=== PATIENT | female | born 1990 ===

== ENCOUNTER 2016-06-02 23:47 | Emergency (ER) | payer OTHER ==
[2016-06-03 00:17] VITALS: BMI 30.4
[2016-06-03 01:10] LABS: RBC URINE 1 /hpf (0-3); URINE BACTERIA FEW (<OCC); URINE BILIRUBIN NEGATIVE (NEGATIVE); URINE BLOOD NEGATIVE (NEGATIVE); URINE CALCIUM OXALATE CRYSTALS RARE /hpf (<OCC); URINE COLOR Yellow (YELLOW); URINE GLUCOSE (UA) NORMAL (Normal); URINE KETONE TRACE mg/dL (NEGATIVE); URINE LEUKOCYTE ESTERASE 2+ Leu/uL (Negative); URINE PROTEIN NEGATIVE (NEGATIVE); URINE UROBILINOGEN NORMAL mg/dL (0.2-1.0); WBC URINE 20 /hpf (0-5)
--- NOTE | 2016-06-03 01:19 | OBHP ---
Datetime: 06/03/2016 00:36 IP Adm Impression: , intrauterine ; No Active Labor IP Chief Complaint Other: left flank pain Admit Comment, IP Provider: chief complaint- left flank pain HPI 26 y/o at 22.5 wga with c/o llq and left flank pain since 6 p m.denies vaginal bleeding o r leaking of fluid.Reports active movement.denies any recent intercourse or lifting any heavy o bject.Rates pain as 3-4/10.Patient denies fever, chills course uncomplicated PMH denies PSH denies OBGYN HX ; [id number] Social hx denie stobacco, alcohol or illcit drug use Exam see exam section A/P 26 y/o at 22.5 wga with c/o left sided flank pain and left lower qusadrant pain.No act meka labor.patient denies any fever or chills -check ua -monitor closely 1.17 am UA with 2+le, wbc, rbc, few bacteria A/P patient with left sided abdominal pain and flank pain.C/o headache now.BP normal.Suspect uti -tylenol 650mg pox 1 given after which headache resolved -script for macrobid given -follow up in clinic next week Pelvic Type - PN: Adequate Extremities - PN: Normal Abdomen - PN: Normal Back - PN: Normal Lungs - PN: Normal Heart - PN: Normal Neurologic - PN: Normal General - PN: Normal FHR - Baseline A Provider: 150s Contraction Comments Provider: none Comments, ACOG Physical Exam: abdomen soft; no rebound or guarding; no cva tenderness Pelvic vulva and vagina with no lesions cervix closed, thick and high Uterus gravid adnexa no adnexal tenderness Gestation - Est Wks by US: 22.5 IP Hx Assessment: The History has been Reviewed and is Current Vital Signs Provider: Reviewed; Within Normal Limits NICHD Variability Prov Fetus A: Moderate 6-25bpm NICHD Decel Fetus A IP Provider: None Dilatation, Provider: 0 Effacement, Provider: thick Station, Provider: high Genitourinary Exam: Normal DTRs - PN: Normal
--- NOTE | 2016-06-03 01:21 | OBDCSUM ---
Datetime: 06/03/2016 01:19 Follow up at, Provider: clinic Disch Instr Activity: Normal activity Disch Instr Diet: Regular Discharge Time: 06/03/2016 01:19 Disch Referrals: None Datetime: 06/03/2016 01:18 Discharged to, Provider: Home Follow up at, Provider: [facility] Disch Instr Diet: Regular Discharge Instructions, Provider: Routine instructions given Discharge Time: 06/03/2016 01:18 Follow up in weeks, Provider: 1 WEEK Discharge Comment, Provider: TAKE MEDS PRESCRIBED GO TO THE ER IF YOU HAVE SEVERE PAIN, HEAVY BLEEDING, FEVER, CHILLS, CHEST PAIN SHORTNES [facility] [place] [facility] Discharge Diagnosis Prov Other: UTI
== END 2016-06-03 01:19 | disposition home or self-care (01) ==
LOC: C.EROB 23:47 → C.ER 23:47 → C.EROB 06-03 01:19
DX: O26.892 Other specified pregnancy related conditions, second trimester (principal); R10.9 Unspecified abdominal pain; R51 Headache; Z3A.22 22 weeks gestation of pregnancy

== ENCOUNTER 2016-07-20 22:15 | Emergency (ER) | payer OTHER ==
[2016-07-20 22:16] VITALS: BMI 30.4
[2016-07-20 22:28] VITALS: BP 101/68; PULSE 84; RESP 20; TEMP 97.8; O2SAT 100
[2016-07-20] MEDS ORDERED: Bacitracin 500 Units/gm Oint Foilpak UD TOP ONE (22:47)
--- NOTE | 2016-07-20 22:49 | C.PDOC ---
History Of Present Illness Patient complains of itching, redness, swelling and pain after insect bite near right jaw 2 days ago. She states she felt fever last night. Patient is . Time Seen by Provider: 07/20/16 22:39 Chief Complaint (Nursing): Abnormal Skin Integrity History Per: Patient History/Exam Limitations: no limitations Onset/Duration Of Symptoms: Days (2) Current Symptoms Are (Timing): Still Present Location Of Injury: Right: Face (insect bite) Past Medical History Reviewed: Historical Data, Nursing Documentation, Vital Signs Vital Signs: Last Vital Signs Temp 97.8 F 07/20/16 22:24 Pulse 84 07/20/16 22:24 Resp 20 07/20/16 22:24 BP 101/68 07/20/16 22:24 Pulse Ox 100 07/20/16 22:50 - Medical History PMH: No Chronic Diseases - [facility] Procedures APPLICATION OF SPLINT (04/19/14) Family History: States: Unknown Family Hx - Social History Hx Tobacco Use: No Hx Alcohol Use: No Hx Substance Use: No - Immunization History Hx Tetanus Toxoid Vaccination: No Hx Influenza Vaccination: No Hx Pneumococcal Vaccination: No Review Of Systems Constitutional: Positive for: Fever Eyes: Negative for: Pain, Vision Change ENT: Negative for: Ear Pain, Throat Pain Cardiovascular: Negative for: Chest Pain Respiratory: Negative for: Cough Gastrointestinal: Negative for: Abdominal Pain Skin: Positive for: Other (insect bite) Neurological: Negative for: Headache, Dizziness Physical Exam - Physical Exam Appears: Non-toxic, No Acute Distress Skin: Warm, Dry, Other (tender erythematous papule with mild surrounding swelling to right lower face, no vesicle, no discharge) Head: Atraumatic, Normacephalic Eye(s): bilateral: Normal Inspection, EOMI Ear(s): Bilateral: Normal Nose: Normal Oral Mucosa: Moist Throat: Normal, No Erythema, No Exudate Neck: Normal ROM Chest: Symmetrical Cardiovascular: Rhythm Regular Respiratory: Normal Breath Sounds, No Wheezing Gastrointestinal/Abdominal: Soft (gravid) Neurological/Psych: Oriented x3, Normal Speech ED Course And Treatment O2 Sat by Pulse Oximetry: 100 Medical Decision Making Medical Decision Making: patient with insect bite to right lower side of face, mild swelling and tenderness, no abscess. Bacitracin applied. Advise to avoid scratching area and will prescribe ointment. Disposition Counseled Patient/Family Regarding: Need For Followup, Rx Given - Disposition Disposition: HOME/ ROUTINE Disposition Time: 22:49 Condition: STABLE Additional Instructions: Aplicar ungento dos veces al da Puede kevin benadryl para cualquier picazn Prescriptions: Mupirocin 2% Ointment [Bactroban Ointment] 1 appl TP BID #1 tube Instructions: Insect Bite or Sting (ED) Print Language: BULGARIAN - POStalin Present On Arrival: None - Clinical Impression Clinical Impression: Insect bite - wound
[2016-07-20] MEDS ORDERED: Bacitracin 500 Units/gm Oint Foilpak UD ONE (22:51)
== END 2016-07-20 23:01 | disposition home or self-care (01) ==
LOC: C.ER 22:15
DX: S00.86XA Insect bite (nonvenomous) of other part of head, initial encounter (principal); W57.XXXA Bitten or stung by nonvenomous insect and other nonvenomous arthropods, initial encounter

== ENCOUNTER 2016-10-01 06:31 | Inpatient (IN) | payer MEDICAID, SELFPAY ==
[2016-10-01 06:57] VITALS: BMI 32.7
[2016-10-01] MEDS ORDERED: Lactated Ringer's 1,000 ML IV SCH ×2 (07:00)
--- NOTE | 2016-10-01 07:15 | OBADHP ---
Datetime: 10/01/2016 07:00 Admit Comment, IP Provider: 26 y.o. LMP unknown ESSENCE 10/02/16, EGA 39w 6d c/o contractions, on set 0400 hours, every 30 minutes, pain scale 4/10; passe mucous plug at that time. (+) AFM; bryant LO F, VB. care: [facility] - noted for (+) chlamydia; and UTI. P Ob: 04/2008, , female 7lb, no complications, [facility]ENT: 12 x monthly x 4. Chlamydia as above. No other STIs PMH: denies PSH: denies NKDA Meds: PNV - QD Soc Hx: denies tobacco, illicit drug or EtOH use. With Fob x 4 years; lives with him and her fidel mancera. Fam Hx: Mother - age and cause unknown. Father alive 50 y.o. - HTN. No knonwn h/o cancer P.E.: as above. WD in NAD. Awake, alert, oriented to time, person and place. Pleasant and cooperat meka. FOB present Assessment: 26 y.o. P1, 39w 6d, active labor. GBS (-). Category 1 tracing. Clinically stable. Plan: 1) Admit 2) NPO 3) IVFs 4) Continuous EFM 5) Admission labs 6) Possible pitocin 7) Epidural, upon request 8) Anticipate vaginal delivery - Case endorsed to Dr. Joy Pelvic Type - PN: Adequate Extremities - PN: Normal Abdomen - PN: Normal Back - PN: Normal Breast - PN: Not Done Lungs - PN: Normal Heart - PN: Normal Thyroid - PN: Not Done Neurologic - PN: Normal HEENT - PN: Normal General - PN: Normal Presentation-Admit: Vertex FHR - Baseline A Provider: 135 Contraction Comments Provider: 8 minutes Comments, ACOG Physical Exam: Abdomen: Gravid. Soft. Fundal height 40 cm All other systems reviewed and are negative Gestation - Est Wks by US: 39w 6d IP Hx Assessment: The History has been Reviewed and is Current IP Chief Complaint: Uterine contractions NICHD Variability Prov Fetus A: Moderate 6-25bpm NICHD Accel Fetus A IP Provider: 15X15 FHR Category Provider Fetus A: Category I NICHD Decel Fetus A IP Provider: None Dilatation, Provider: 4 Effacement, Provider: 80 Station, Provider: -2 Genitourinary Exam: Normal DTRs - PN: Not Done EGA AdmitDate IP: 39.6 IP Adm Impression: Term, intrauterine ; Active labor IP Admit Plan: Admit to unit; Initiate Section protocol Datetime: 06/03/2016 00:36 IP Chief Complaint Other: left flank pain Vital Signs Provider: Reviewed; Within Normal Limits
[2016-10-01 07:27] LABS: BASO # 0.1 K/uL (0.0-0.2); BASO % 0.3 % (0.0-2.0); EOS # 0.1 K/uL (0.0-0.7); EOS % 0.9 % (0.0-4.0); HEMOGLOBIN 11.9 g/dL (11.0-16.0); LYMPH % 19.1 % (20.0-40.0); MEAN CELL VOLUME 84.4 fL (81.0-99.0); MEAN CORPUSCULAR HEMOGLOBIN 27.7 pg (27.0-31.0); MEAN CORPUSCULAR HGB CONC 32.8 g/dL (33.0-37.0); MEAN PLATELET VOLUME 10.1 fL (7.2-11.7); MONO # 0.6 K/uL (0.0-0.8); MONO % 3.9 % (0.0-10.0); NEUT # 11.9 K/uL (1.8-7.0); NEUT % 75.8 % (50.0-75.0); RBC 4.3 Mil/uL (3.80-5.20); RED CELL DISTRIBUTION WIDTH 13.3 % (11.5-14.5); WHITE BLOOD COUNT 15.7 K/uL (4.8-10.8)
[2016-10-01 07:42] LABS: ALB/GLOB RATIO 1.2 (1.0-2.1); ALBUMIN 3.4 g/dL (3.5-5.0); ALT/SGPT 34 U/L (9-52); AST/SGOT 18 U/L (14-36); BLOOD UREA NITROGEN 9 mg/dL (7-17); CALCIUM 8.9 mg/dl (8.6-10.4); GFR AFRICAN-AMERICAN > 60; GFR NON-AFRICAN AMERICAN > 60
[2016-10-01 07:52] LABS: SQUAMOUS EPITHIAL 3 /hpf (0-5); URINE BILIRUBIN NEGATIVE (NEGATIVE); URINE BLOOD NEGATIVE (NEGATIVE); URINE CLARITY Clear (Clear); URINE COLOR Yellow (YELLOW); URINE GLUCOSE (UA) NORMAL (Normal); URINE LEUKOCYTE ESTERASE NEG Leu/uL (Negative); URINE NITRATE NEGATIVE (NEGATIVE); URINE PROTEIN NEGATIVE (NEGATIVE); URINE UROBILINOGEN NORMAL mg/dL (0.2-1.0)
[2016-10-01] MEDS ORDERED: Oxytocin 30 UNIT 30 UNITS/500 ML BAG IV PRN (08:12)
--- NOTE | 2016-10-01 08:13 | OBPN ---
Datetime: 10/01/2016 08:10 IP Progress Impression: Normal progression of labor IP Procedures: Sterile Vag Exam FHR - Baseline A Provider: 130 IP Progress Note Comment: pt was examined at bed side ve 4/80/-2 start ptocin anticipate Vital Signs Provider: Reviewed; Within Normal Limits NICHD Accel Fetus A IP Provider: 15X15 NICHD Variability Prov Fetus A: Moderate 6-25bpm Dilatation, Provider: 4 Effacement, Provider: 80 Station, Provider: -2 Datetime: 10/01/2016 07:00 Contraction Comments Provider: 8 minutes Gestation - Est Wks by US: 39w 6d Presentation-Admit: Vertex FHR Category Provider Fetus A: Category I NICHD Decel Fetus A IP Provider: None
[2016-10-01] MEDS ORDERED: Bupivacaine HCl 0.25% PF (10 ml) Inj ONE (08:14)
[2016-10-01] MEDS ORDERED: Bupivacaine 0.125%/FentaNYL 200 ML EPI ONE (09:17)
--- NOTE | 2016-10-01 14:00 | OBDS ---
MATERNAL INFORMATION Provider Comments: baby deliverd in [place] with compound presentation. left arm deliverd . peads presem t. 9/9 end clean no com LABOR SUMMARY EDC: 10/02/2016 00:00 No. Babies in Womb: 1 LABOR INFORMATION Group B Beta Strep: Negative (Annotations: 09/14/2016) MEMBRANES Membranes Rupture Method: Artificial Rupture of Membranes: 10/01/2016 10:10 Amniotic Fluid Color: Clear Amniotic Fluid Amount: Moderate Amniotic Fluid Odor: Normal BABY A INFORMATION Forceps: N/A Vacuum Extraction: N/A Shoulder Dystocia : No PRESENTATION/POSITION BABY A Presentation: Cephalic Cephalic Presentation: Vertex Vertex Position: Left Occipital Anterior Breech Presentation: N/A CORD INFORMATION BABY A Nuchal Cord : Around Neck x1, Tight
[2016-10-01] MEDS ORDERED: Benzocaine/Menthol 20%-0.5% Topical Spray (60 ml) TOP PRN (14:01)
[2016-10-01] MEDS ORDERED: Oxycodone/Acetaminophen 5/325 mg Tab PO PRN (14:01)
[2016-10-01] MEDS ORDERED: Oxytocin 30 UNIT 30 UNITS/500 ML BAG IV SCH (14:15)
[2016-10-02 07:01] LABS: HEMOGLOBIN 10.3 g/dL (11.0-16.0); MEAN CELL VOLUME 84.4 fL (81.0-99.0); MEAN CORPUSCULAR HEMOGLOBIN 27.7 pg (27.0-31.0); MEAN CORPUSCULAR HGB CONC 32.8 g/dL (33.0-37.0); MEAN PLATELET VOLUME 10.2 fL (7.2-11.7); RBC 3.72 Mil/uL (3.80-5.20); RED CELL DISTRIBUTION WIDTH 13.3 % (11.5-14.5); WHITE BLOOD COUNT 17.9 K/uL (4.8-10.8)
--- NOTE | 2016-10-02 09:11 | OBPPN ---
Datetime: 10/02/2016 09:07 PP Pain Prov: Within normal limits PP Nausea Prov: Denies PP Flatus Prov: Yes PP Breasts Prov: Normal PP Heart Prov: Normal PP Lungs Prov: Normal PP Abdomen/Uterus Prov: Normal PP Lochia Prov: Normal PP Vulva/Perineum Prov: Normal PP CVA Tenderness Prov: Normal PP Extremities Prov: Normal PP C/S Incision Prov: Not Applicable PP Progress Prov: Normal PP Comments Phys Exam Prov: Abd: Soft, NT, BS- present. UT- Firm PP Impression Prov: Normal progression PP Plan Prov: Continue present management PP Progress Note Prov: S/P , PPD #1 Clinically Stable. PLan: Continue care. Vital Signs Provider PP: Reviewed
[2016-10-03 07:02] VITALS: TEMP 97.8
--- NOTE | 2016-10-03 07:39 | OBPPN ---
Datetime: 10/03/2016 07:36 PP Pain Prov: Within normal limits PP Nausea Prov: Denies PP Flatus Prov: Yes PP BM Prov: Yes PP Heart Prov: Normal PP Lungs Prov: Normal PP Abdomen/Uterus Prov: Normal PP Lochia Prov: Normal PP CVA Tenderness Prov: Normal PP Extremities Prov: Normal PP C/S Incision Prov: Not Applicable PP Progress Prov: Normal PP Impression Prov: Normal progression PP Plan Prov: Discharge PP Progress Note Prov: S-patient denies any complaints.reports that pain is well controlled.denies n ausea, vomting, headache, chest pain, shortness of breath O-VSS Afebrile Fundus firm and below umbilicus extremities no calf tenderness A/P Patient s/p vaginal delivery PPD 2 doing well -discharge today -follow up in clinic in 6 weeks Vital Signs Provider PP: Reviewed; Within Normal Limits
--- NOTE | 2016-10-03 07:41 | OBDCSUM ---
Datetime: 10/03/2016 07:38 Discharged to, Provider: Home Follow up at, Provider: clinic Disch Instr Activity: Normal activity Disch Instr Diet: Regular Discharge Instructions, Provider: Routine instructions given Discharge Diagnosis, Provider: Term Delivered Discharge Time: 10/03/2016 07:38 Follow up in weeks, Provider: 6 weeks Disch Activity Restrictions: No exercising; No lifting; No driving; No sexual activity; Nothing in v agina - [place], tampons, douche Discharge Comment, Provider: go to er if you have fever, severe pain, heavy bleeding or any other pr oblems
[2016-10-03 15:56] VITALS: BP 99/62; PULSE 65; RESP 18; O2SAT 99
== END 2016-10-03 10:30 | disposition home or self-care (01) | DRG 373 ==
LOC: C.EROB 06:31 → C.4D 06:56 → C.4M 16:05
PROVIDERS: ADMIT Obstetrics & Gynecology; ATTEND Obstetrics & Gynecology
PROC: 10E0XZZ Delivery of Products of Conception, External Approach (ICD-10-PCS; principal; 2016-10-01)
PROC: 10907ZC Drainage of Amniotic Fluid, Therapeutic from Products of Conception, Via Natural or Artificial Opening (ICD-10-PCS; 2016-10-01)
DX: O32.6XX0 Maternal care for compound presentation, not applicable or unspecified (principal); O69.1XX0 Labor and delivery complicated by cord around neck, with compression, not applicable or unspecified; Z3A.39 39 weeks gestation of pregnancy; Z87.440 Personal history of urinary (tract) infections; Z37.0 Single live birth

== ENCOUNTER 2018-01-21 17:36 | Emergency (ER) | payer MEDICAID ==
[2018-01-21 17:45] VITALS: BP 103/68; PULSE 94; RESP 18; TEMP 98; O2SAT 100
--- NOTE | 2018-01-21 18:27 | C.PDOC ---
History Of Present Illness 27 year old female, who is 27 weeks pregnany, presents to the emergency department with complaints of "allergy" including itchy nose, eyes, and throat for the last two days. Patient states that she took Claritin and Benadryl at home with no significant relief of symptoms. She denies fever, chills, shortness of breath, chest pain, leg swelling, headache, n/v, abdomen pain, vaginal bleeding, and palpitations. Time Seen by Provider: 01/21/18 18:09 Chief Complaint (Nursing): ENT Problem History Per: Patient, Horse Wrangler (Pavel Lea) History/Exam Limitations: no limitations Onset/Duration Of Symptoms: Days (2) Current Symptoms Are (Timing): Still Present Possible Cause: Unknown Associated Symptoms: Itching Home/EMS Treatment: Benadryl, Other (Claritin) Past Medical History Reviewed: Historical Data, Nursing Documentation, Vital Signs Vital Signs: Last Vital Signs Temp 98.0 F 01/21/18 17:42 Pulse 94 H 01/21/18 17:42 Resp 18 01/21/18 17:42 BP 103/68 01/21/18 17:42 Pulse Ox 100 01/21/18 17:42 - Medical History PMH: No Chronic Diseases Denies: Depression, Diabetes, HTN Surgical History: No Surg Hx - [facility] Procedures APPLICATION OF SPLINT (04/19/14) DELIVERY OF PRODUCTS OF CONCEPTION, EXTERNAL APPROACH (10/01/16) DRAINAGE OF AMNIOTIC FL, THERAP FROM POC, VIA OPENING (10/01/16) Family History: States: No Known Family Hx - Social History Hx Tobacco Use: No Hx Alcohol Use: No Hx Substance Use: No - Immunization History Hx Tetanus Toxoid Vaccination: No Hx Influenza Vaccination: No Hx Pneumococcal Vaccination: No Review Of Systems Except As Marked, All Systems Reviewed And Found Negative. Constitutional: Negative for: Fever, Chills Eyes: Positive for: Other (itchy eyes) ENT: Positive for: Other (itchy throat, itchy nose) Cardiovascular: Negative for: Chest Pain, Palpitations Respiratory: Negative for: Shortness of Breath Physical Exam - Physical Exam Appears: Well, Non-toxic, No Acute Distress Skin: Normal Color, Warm, Dry Head: Atraumatic, Normacephalic Eye(s): bilateral: PERRL, EOMI, Other (tearing) Ear(s): Bilateral: Normal Nose: Other (nasal congestion) Oral Mucosa: Moist Throat: Normal, No Erythema, No Exudate, No Drooling Neck: Normal ROM, Supple Chest: Symmetrical Cardiovascular: Rhythm Regular Respiratory: Normal Breath Sounds, No Accessory Muscle Use, Other (speaking full sentences) Gastrointestinal/Abdominal: No Tenderness, Other (gravid appropriate to dates) Neurological/Psych: Oriented x3 ED Course And Treatment O2 Sat by Pulse Oximetry: 100 (RA) Pulse Ox Interpretation: Normal Progress Note: Instructed to follow up with OB in 1-2 days. Discussed return precautions. Disposition - Disposition Disposition: HOME/ ROUTINE Disposition Time: 17:40 Condition: STABLE Additional Instructions: Vaya a domingo mdico o la clnica en 2-5 harris sin falta, para mas evaluacin. [place] los medicamentos michelle indicado. Volver a la oswald de emergencia en cualquier momento si los sntomas persisten o empeoran. Prescriptions: Cetirizine HCl [Zyrtec] 10 mg PO DAILY #10 capsule Instructions: Seasonal Allergies (DC) Forms: [employer] (Yoruba) Print Language: INDONESIAN - Clinical Impression Clinical Impression: Seasonal allergies - PA / CLINICAL RESEARCH TECHNICIAN / Resident Statement MD/DO has reviewed & agrees with the documentation as recorded. - Scribe Statement The provider has reviewed the documentation as recorded by the Scribe (Faisal Mccloud) All medical record entries made by the Scribe were at my direction and personally dictated by me. I have reviewed the chart and agree that the record accurately reflects my personal performance of the history, physical exam, medical decision making, and the department course for this patient. I have also personally directed, reviewed, and agree with the discharge instructions and disposition.
--- NOTE | 2018-01-21 18:29 | C.PDOC ---
Time Seen by Provider: 01/21/18 18:09 Chief Complaint (Nursing): ENT Problem Past Medical History Vital Signs: Last Vital Signs Temp 98.0 F 01/21/18 17:42 Pulse 94 H 01/21/18 17:42 Resp 18 01/21/18 17:42 BP 103/68 01/21/18 17:42 Pulse Ox 100 01/21/18 17:42 - Medical History PMH: Denies: Depression, Diabetes, HTN - [facility] Procedures APPLICATION OF SPLINT (04/19/14) DELIVERY OF PRODUCTS OF CONCEPTION, EXTERNAL APPROACH (10/01/16) DRAINAGE OF AMNIOTIC FL, THERAP FROM POC, VIA OPENING (10/01/16) Family History: States: Unknown Family Hx - Social History Hx Tobacco Use: No Hx Alcohol Use: No Hx Substance Use: No - Immunization History Hx Tetanus Toxoid Vaccination: No Hx Influenza Vaccination: No Hx Pneumococcal Vaccination: No ED Course And Treatment O2 Sat by Pulse Oximetry: 100 Disposition - Disposition Disposition: HOME/ ROUTINE Disposition Time: 18:26 Condition: STABLE Additional Instructions: Vaya a domingo mdico o la clnica en 2-5 harris sin falta, para mas evaluacin. [place] os medicamentos michelle indicado. Volver a la oswald de emergencia en cualquier momento si los sntomas persisten o empeoran. Prescriptions: Cetirizine HCl [Zyrtec] 10 mg PO DAILY #10 capsule Instructions: Seasonal Allergies (DC) Forms: [employer] (Danish) Print Language: KISWAHILI
== END 2018-01-21 18:32 | disposition home or self-care (01) ==
LOC: C.ER 17:36
DX: J30.2 Other seasonal allergic rhinitis (principal)

== ENCOUNTER 2018-04-18 03:59 | Emergency (ER) | payer MEDICAID ==
--- NOTE | 2018-04-18 05:22 | OBHP ---
Datetime: 04/18/2018 05:16 IP Adm Impression: Term, intrauterine ; No Active Labor; Intact Membranes IP Admit Plan: Discharge home Admit Comment, IP Provider: A/P: 28 yo at 40 wks r/o labor - multigravida - pt came in stating its her due date - + ctxs, -LOF, -VB, +FM - early labor, precautions given, return to hospital when ctxs q 5 min, d/w pt through language li ne, pt understands - d/c home FHR - Baseline A Provider: 130-140 Membranes, Provider: Intact Contraction Comments Provider: q10 Pool Provider: Negative EGA AdmitDate IP: 40.0 Vital Signs Provider: Reviewed; Within Normal Limits IP Chief Complaint: Uterine contractions; Maternal discomfort NICHD Variability Prov Fetus A: Moderate 6-25bpm NICHD Accel Fetus A IP Provider: 15X15 FHR Category Provider Fetus A: Category I NICHD Decel Fetus A IP Provider: None Dilatation, Provider: 2 Effacement, Provider: 50 Station, Provider: -3
[2018-04-18 09:42] VITALS: BP 113/69; PULSE 80; RESP 20; TEMP 98
== END 2018-04-18 05:35 | disposition home or self-care (01) ==
LOC: C.EROB 03:59
DX: O47.1 False labor at or after 37 completed weeks of gestation (principal); Z3A.40 40 weeks gestation of pregnancy

== ENCOUNTER 2018-04-19 04:39 | Inpatient (IN) | payer MEDICAID ==
[2018-04-19 05:38] VITALS: BMI 32.0
[2018-04-19] MEDS ORDERED: Lactated Ringer's 1,000 ML IV SCH (05:45)
[2018-04-19 06:08] LABS: HEMOGLOBIN 12.7 g/dL (11.0-16.0); MEAN CELL VOLUME 86.9 fL (81.0-99.0); MEAN CORPUSCULAR HEMOGLOBIN 28.3 pg (27.0-31.0); MEAN CORPUSCULAR HGB CONC 32.5 g/dL (33.0-37.0); MEAN PLATELET VOLUME 10.8 fL (7.2-11.7); RBC 4.48 Mil/uL (3.80-5.20); RED CELL DISTRIBUTION WIDTH 13.3 % (11.5-14.5); WHITE BLOOD COUNT 15.9 K/uL (4.8-10.8)
[2018-04-19 06:16] LABS: SQUAMOUS EPITHIAL 6 /hpf (0-5); URINE BILIRUBIN NEGATIVE (NEGATIVE); URINE CLARITY Hazy (Clear); URINE COLOR Yellow (YELLOW); URINE GLUCOSE (UA) NORMAL (Normal); URINE LEUKOCYTE ESTERASE 1+ Leu/uL (Negative); URINE PROTEIN NEGATIVE (NEGATIVE); URINE UROBILINOGEN NORMAL mg/dL (0.2-1.0)
[2018-04-19 06:23] LABS: ALB/GLOB RATIO 1.2 (1.0-2.1); ALBUMIN 3.8 g/dL (3.5-5.0); ALT/SGPT 24 U/L (9-52); AST/SGOT 18 U/L (14-36); BLOOD UREA NITROGEN 11 mg/dL (7-17); CALCIUM 9.7 mg/dl (8.6-10.4); GFR NON-AFRICAN AMERICAN > 60
[2018-04-19 06:36] LABS: URINE BLOOD NEGATIVE (NEGATIVE)
[2018-04-19] MEDS ORDERED: Oxytocin 30 UNIT 30 UNITS/500 ML BAG IV ONE ×2 (07:45→08:37)
[2018-04-19] MEDS ORDERED: Bupivacaine HCl/FentaNYL Cit 100 ML EPI ONE (07:52)
--- NOTE | 2018-04-19 09:50 | OBHP ---
Datetime: 04/19/2018 08:22 IP Adm Impression: Term, intrauterine ; No Active Labor; Intact Membranes IP Admit Plan: Admit to unit; Initiate labor augmentation protocol Admit Comment, IP Provider: Subjective: Patient is a 28 year old female at 40 weeks 1 day gestation presenting with early onset of labor. Patient states that she began feeling intermittent lower abdominal cramping at 4am. At the ti me she noticed an isolated episode of slight vaginal bleeding, with no gush of fluid. Patient endorse s continuous movement. Patient denies headaches, blurry vision, chest pain, shortness of breath , nausea, vomiting, diarrhea, constipation, dysuria, increased frequency. OBGYN Hx: ; prior pregnancies vaginal delivery at 40 weeks. Second required augme ntation. Chl2016 and 10/2017 patient and partner treated. Soc Hx: Denies tobacco, alcohol, illicit drug use. Medical Hx: Denies Allergies: Environmental only Surgical Hx: Denies Hospitilizations: For 2 prior pregnancies. Family Hx: DM, HTN Medications: PNV Objective: VS - vital signs reviewed PE- please see physical exam comments. Assessment and Plan: 1. 28 year old female 40 weeks 1 day 2. Early labor 3. Post dates 4. Multigravida 5. GBS - Will admit to hospital Anticipate vaginal delivery Initiate augmentation of labor with pitocin. Pain control with epidural. CBC, CMP, type and screen UA collected IV Fluids; LR 1L, LR @ 125 maintenance Rosa catheter placed. CEFM and TOCO No indication for antibiotics at this time Patient seen and case discussed with Dr. Sanjay Ratliff DO PGY-1 Sharmila EVERETT Pt seen and examined with Dr. Ratliff and Med Student Mr. Davis and agreed with all of their finding s and POC. Pelvic Type - PN: Adequate Extremities - PN: Normal Abdomen - PN: Normal Back - PN: Normal Breast - PN: Not Done Lungs - PN: Normal Heart - PN: Normal Thyroid - PN: Not Done Neurologic - PN: Not Done HEENT - PN: Normal General - PN: Normal Presentation-Admit: Vertex FHR - Baseline A Provider: 135 Membranes, Provider: Intact Contraction Comments Provider: Irregular Comments, ACOG Physical Exam: General: non toxic, no acute distress HEENT: normocephalic atraumatic Cardio: Regular rate rhythm, + s1, +s2 Pulm: Clear to ausculation b/l, no accessory respiratory muscle use GI: nontender, non distended, soft : 3-4 cm dilated, 70% effaced, -3 station at [address] catheter in place. Extremities: +1 LE edema. Gestation - Est Wks by US: 40 wks 1 day Pool Provider: Negative IP Hx Assessment: The History has been Reviewed and is Current EGA AdmitDate IP: 40.1 Vital Signs Provider: Reviewed; Within Normal Limits IP Indication for Induction: Postterm IP Chief Complaint: Uterine contractions NICHD Variability Prov Fetus A: Moderate 6-25bpm NICHD Accel Fetus A IP Provider: 15X15 FHR Category Provider Fetus A: Category I NICHD Decel Fetus A IP Provider: None Dilatation, Provider: 3 Effacement, Provider: 70 Station, Provider: -3 Genitourinary Exam: Normal DTRs - PN: Not Done
--- NOTE | 2018-04-19 09:53 | OBADHP ---
Datetime: 04/19/2018 08:22 Admit Comment, IP Provider: Subjective: Patient is a 28 year old female at 40 weeks 1 day gestation presenting with early onset of labor. Patient states that she began feeling intermittent lower abdominal cramping at 4am. At the ti me she noticed an isolated episode of slight vaginal bleeding, with no gush of fluid. Patient endorse s continuous movement. Patient denies headaches, blurry vision, chest pain, shortness of breath , nausea, vomiting, diarrhea, constipation, dysuria, increased frequency. OBGYN Hx: ; prior pregnancies vaginal delivery at 40 weeks. Second required augme ntation. Chl2016 and 10/2017 patient and partner treated. Soc Hx: Denies tobacco, alcohol, illicit drug use. Medical Hx: Denies Allergies: Environmental only Surgical Hx: Denies Hospitilizations: For 2 prior pregnancies. Family Hx: DM, HTN Medications: PNV Objective: VS - vital signs reviewed PE- please see physical exam comments. Assessment and Plan: 1. 28 year old female 40 weeks 1 day 2. Early labor 3. Post dates 4. Multigravida 5. GBS - Will admit to hospital Anticipate vaginal delivery Initiate augmentation of labor with pitocin. Pain control with epidural. CBC, CMP, type and screen UA collected IV Fluids; LR 1L, LR @ 125 maintenance Rosa catheter placed. CEFM and TOCO No indication for antibiotics at this time Patient seen and case discussed with Dr. Sanjay Ratliff DO PGY-1 Sharmila EVERETT Pt seen and examined with Dr. Ratliff and Med Student Mr. Davis and agreed with all of their finding s and POC. Pelvic Type - PN: Adequate Extremities - PN: Normal Abdomen - PN: Normal Back - PN: Normal Breast - PN: Not Done Lungs - PN: Normal Heart - PN: Normal Thyroid - PN: Not Done Neurologic - PN: Not Done HEENT - PN: Normal General - PN: Normal Presentation-Admit: Vertex FHR - Baseline A Provider: 135 Membranes, Provider: Intact Contraction Comments Provider: Irregular Comments, ACOG Physical Exam: General: non toxic, no acute distress HEENT: normocephalic atraumatic Cardio: Regular rate rhythm, + s1, +s2 Pulm: Clear to ausculation b/l, no accessory respiratory muscle use GI: nontender, non distended, soft : 3-4 cm dilated, 70% effaced, -3 station at [address] catheter in place. Extremities: +1 LE edema. Gestation - Est Wks by US: 40 wks 1 day Pool Provider: Negative IP Hx Assessment: The History has been Reviewed and is Current Vital Signs Provider: Reviewed; Within Normal Limits IP Chief Complaint: Uterine contractions NICHD Variability Prov Fetus A: Moderate 6-25bpm NICHD Accel Fetus A IP Provider: 15X15 FHR Category Provider Fetus A: Category I NICHD Decel Fetus A IP Provider: None Dilatation, Provider: 3 Effacement, Provider: 70 Station, Provider: -3 Genitourinary Exam: Normal DTRs - PN: Not Done EGA AdmitDate IP: 40.1 IP Adm Impression: Term, intrauterine ; No Active Labor; Intact Membranes IP Admit Plan: Admit to unit; Initiate labor augmentation protocol
[2018-04-19] MEDS ORDERED: Lactated Ringer's 500 ML IV SCH (10:15)
--- NOTE | 2018-04-19 11:12 | OBPN ---
Datetime: 04/19/2018 10:53 IP Progress Impression: Normal progression of labor IP Procedures: Sterile Vag Exam IP Progress Plan: Continue present management; Augmentation; Anticipate Vaginal Delivery Membranes, Provider: Intact Contraction Comments Provider: 1-2 FHR - Baseline A Provider: 140 IP Progress Note Comment: Patient examined in room. Denies pain associated with contractions. Cervical Exam: as above Pitcocin at 10Munits 28 year old P2 at 40 wks 1day in active labor on pitocin Category I tracing Patient clinically stable Plan: As above Patient seen and examined with Dr. Oneil Ratliff, PGY-1 Attending Note: patient seen, evaluated and examined by me with the Resident. I agree with the abo ve. Vital Signs Provider: Reviewed; Within Normal Limits FHR Category Provider Fetus A: Category I NICHD Variability Prov Fetus A: Moderate 6-25bpm Dilatation, Provider: 6-7 Effacement, Provider: 80 Station, Provider: 0 NICHD Decel Fetus A IP Provider: Early Datetime: 04/19/2018 08:22 Pool Provider: Negative Gestation - Est Wks by US: 40 wks 1 day Presentation-Admit: Vertex NICHD Accel Fetus A IP Provider: [id number]
[2018-04-19] MEDS ORDERED: Oxytocin 20 units in LR 2,000 ML IV ONE (11:13)
[2018-04-19] MEDS ORDERED: Oxytocin 10 Units/ml Inj ONE (13:25)
[2018-04-19] MEDS ORDERED: Oxytocin 10 Units/ml Inj IV ONE (13:30)
[2018-04-19] MEDS ORDERED: Benzocaine/Menthol 20%-0.5% Topical Spray (60 ml) TOP PRN (13:54)
[2018-04-19] MEDS: Oxycodone/Acetaminophen 5/325 mg Tab PO PRN ×2 (14:28→20:10)
[2018-04-19] MEDS ORDERED: Oxycodone/Acetaminophen 5/325 mg Tab ONE (14:31)
--- NOTE | 2018-04-19 14:41 | OBDS ---
DELIVERY PERSONNEL Delivery Doctor: Stephen Riggs MD Corporate Driver: FREDY Rao Anesthesiologist: Dr Church Resident: Dr Ratliff MATERNAL INFORMATION Delivery Anesthesia: Epidural Medications in Delivery: pitocin and methergine Estimated Blood Loss (ml): 1000 Placenta Cultured: No Maternal Complications: None Provider Comments: , live male over intact perineum, EUGENE, loose nuchal cord x 2. Infant's mouth and nose bulb-suctioned on perineum. placed on mother's abdomen. Delayed cord clamping x 60 sec; then cord doubly clamped and cut. Spontaneous deliveyr of placents - grossly intact, 3 vesse cord Uterine exploraiton performed - moderate amount of clots expressed. Uterus mildly boggy. 20 units pitocin added to infusion of 20 Units in 1000 mL LR. Uterus firmed up. Cervix, vagina, perineum inspected - laceration as above. No cervical or vaginal laceration noted. Another gush of blood noted. Methergine 0.2 mg IM adminstered; uterus evacuated additional clots. Bi manual massage performed; uterus once again more firm. Repair of laceration - as above. Hemostasis assured. Patient remained awake, alert, oriented and responsive during entire encounter. BP wnl throughout. Patient tolerated procedure well; bonding with . EBL 1,000 mL Weight 6lb 4oz 's 9/9 LABOR SUMMARY EDC: 04/18/2018 00:00 No. Babies in Womb: 1 Attempted: No Labor Anesthesia: Epidural LABOR INFORMATION Onset of Labor: 04/19/2018 03:30 Complete Dilatation: 04/19/2018 13:07 Oxytocin: Augmentation Group B Beta Strep: Negative (Annotations: 03/27/2018) Steroids Given: None Reason Steroids Not Administered: Not Applicable MEMBRANES Membranes Rupture Method: Spontaneous Rupture of Membranes: 04/19/2018 13:11 Length of Rupture (hrs): 0.00 Amniotic Fluid Color: Clear Amniotic Fluid Amount: Moderate STAGES OF LABOR Stage 1 hrs: 9 Stage 1 min: 37 Stage 2 hrs: 0 Stage 2 min: 4 Stage 3 hrs: 0 Stage 3 min: 8 Total Time in Labor hrs: 9 Total Time in Labor min: 49 VAGINAL DELIVERY Episiotomy: None Laceration Extension: N/A Other Laceration: 1st degree right periurethral and left labial lacerations Laceration Repair Note: 3-0 chromic - running interocking - left labial Hemostasis assured Patient tolerated procedure well. Initial Vag Sponge Count: 10 Final Vag Sponge Count: 10 Initial Vag Sharps Count: 1 Final Vag Sharps Count: 1 Sponge Count Correct: Yes Sharps Count Correct: Yes Count Comment: Correct BABY A INFORMATION Infant Delivery Date/Time: 04/19/2018 13:11 Method of Delivery: Vaginal Born in Route : No : N/A Forceps: N/A Vacuum Extraction: N/A Shoulder Dystocia : No SHOULDER DYSTOCIA BABY A Infant Delivery Date/Time: 04/19/2018 13:11 PRESENTATION/POSITION BABY A Presentation: Cephalic Cephalic Presentation: Vertex Breech Presentation: N/A PLACENTA INFORMATION BABY A Placenta Delivery Time : 04/19/2018 13:19 Placenta Method of Delivery: Spontaneous Placenta Status: Delivered SCORES BABY A Heart Rate 1 min: >100 bpm Resp Effort 1 min: Good Cry Reflex Irritability 1 min: Cough or Sneeze or Pulls Away Muscle Tone 1 min: Active Motion Color 1 min: Body [place], Extremities Blue Resuscitation Effort 1 min: Tactile Stimulation SCORE 1 MIN: 9 Heart Rate 5 min: >100 bpm Resp Effort 5 min: Good Cry Reflex Irritability 5 min: Cough or Sneeze or Pulls Away Muscle Tone 5 min: Active Motion Color 5 min: Body [place], Extremities Blue Resuscitation Effort 5 min: Tactile Stimulation SCORE 5 MIN: 9 INFORMATION BABY A Gestational Age at Delivery: 40.1 Gestational Status: Post-term Infant Outcome : Liveborn Infant Condition : Stable Sex: Male IDENTIFICATION/MEDS BABY A ID Band Number: [id number] ID Band Location: Right Arm; Left Leg Sensor Applied: Yes Sensor Number: [id number] Sensor Location : Cord Clamp Vitamin K Given : Not Given Erythromycin Given: Not Given WEIGHT/LENGTH BABY A Infant Birthweight (gms): 2825 Weight (lb): 6 Infant Weight (oz): 4 Length Inches: 20.00 Length cms: 50.8 CORD INFORMATION BABY A No. Cord Vessels: 0 Nuchal Cord : Around Neck x2, Loose Cord Blood Taken: Yes Suction: Mouth; Nose ASSESSMENT BABY A Complications: None Physical Findings at Delivery: Within Normal Limits Respirations: Appears Normal Television Reporter/ALS Called : No Infant Care By: LESLEY Tran Transferred To: Remains with Mother
[2018-04-19] MEDS ORDERED: Nalbuphine HCL 10 mg/ml Ampule ONE (16:54)
[2018-04-19 18:43] LABS: BASO # 0.1 K/uL (0.0-0.2); BASO % 0.4 % (0.0-2.0); EOS # 0.1 K/uL (0.0-0.7); EOS % 0.3 % (0.0-4.0); LYMPH # 2.9 K/uL (1.0-4.3); LYMPH % 12.1 % (20.0-40.0); MEAN CELL VOLUME 86.3 fL (81.0-99.0); MEAN CORPUSCULAR HEMOGLOBIN 27.7 pg (27.0-31.0); MEAN CORPUSCULAR HGB CONC 32.1 g/dL (33.0-37.0); MEAN PLATELET VOLUME 10.3 fL (7.2-11.7); MONO % 4.3 % (0.0-10.0); NEUT % 82.9 % (50.0-75.0); NRBC % 0.1 % (0.0-2.0); RBC 4.35 Mil/uL (3.80-5.20); RED CELL DISTRIBUTION WIDTH 13.4 % (11.5-14.5)
[2018-04-19 18:48] LABS: WHITE BLOOD COUNT 24.2 K/uL (4.8-10.8)
--- NOTE | 2018-04-19 18:56 | CP.PCM.PN ---
Subjective - Date & Time of Evaluation Date of Evaluation: 04/19/18 Time of Evaluation: 18:50 - Subjective Subjective: Progress note. Rapid response called roughly 6:30 PM for "unresponsive patient" Pt just finished delivering third child by vaginal delivery. Apparently was not responding to questions or commands. Responded ultimately to sternal rub. Now resting comfortably. Significant amount of urine drained by shannon. VSS. Stat cbc, cmp ordered. O: VSS. Head: NC,AT. Neck: supple. Lungs: CTAB. Heart: S1,S2. RRR. Abdomen: Soft, non tender. Ext: no c/c/e. A/P Possibly vasovagal rxn secondary to epidural/urinary retention 1. stat cbc, cmp ordered -continue fluids -continue to monitor -vital signs stable. Objective - Medications Medications: Current Medications Benzocaine/Menthol (Dermoplast 20%-0.5%) 0 ml TOP Q6 PRN PRN Reason: Perineal Discomfort Last Admin: 04/19/18 17:57 Dose: 10 ml Lactated Ringer's (Lactated Ringer's) 1,000 mls @ 0 mls/hr IV .Q0M [facility] Oxytocin (Pitocin) 30 units in 500 mls @ 2 mls/hr IV .Q24H ONE; Protocol Stop: 04/20/18 07:44 Last Admin: 04/19/18 08:45 Dose: 2 mls/hr Lactated Ringer's (Lactated Ringer's) 500 mls @ 999 mls/hr IV .Q31M [facility] Oxytocin (Pitocin 20 Units In Lr) 1,000 mls @ 125 mls/hr IV .Q8H ONE Stop: 04/19/18 21:45 Ibuprofen (Motrin Tab) 600 mg PO Q6 PRN PRN Reason: Pain, Mild (1-3) Last Admin: 04/19/18 13:58 Dose: 600 mg Multivitamins (Hexavitamin) 1 tab PO DAILY [facility] Oxycodone/Acetaminophen (Percocet 5/325 Mg Tab) 1 tab PO Q4H PRN PRN Reason: Pain, moderate (4-7) Stop: 04/22/18 13:47 Last Admin: 04/19/18 14:28 Dose: 1 tab Sennosides (Senokot Tab) 17.2 mg PO DAILY [facility] - Labs Labs: 04/19/18 18:40 04/19/18 06:04
[2018-04-19 19:02] LABS: ALB/GLOB RATIO 1.2 (1.0-2.1); ALBUMIN 3.2 g/dL (3.5-5.0); ALT/SGPT 19 U/L (9-52); AST/SGOT 20 U/L (14-36); BLOOD UREA NITROGEN 7 mg/dL (7-17); CALCIUM 9.1 mg/dl (8.6-10.4); GFR NON-AFRICAN AMERICAN > 60
[2018-04-19 19:30] LABS: SQUAMOUS EPITHIAL 1 /hpf (0-5); URINE BILIRUBIN NEGATIVE (NEGATIVE); URINE BLOOD 2+ (NEGATIVE); URINE CLARITY Clear (Clear); URINE COLOR Yellow (YELLOW); URINE GLUCOSE (UA) NORMAL (Normal); URINE LEUKOCYTE ESTERASE NEG Leu/uL (Negative); URINE PROTEIN NEGATIVE (NEGATIVE); URINE UROBILINOGEN NORMAL mg/dL (0.2-1.0)
[2018-04-19 19:35] LABS: BARBITURATES, UR NEGATIVE (NEGATIVE); BENZODIAZEPINES, UR NEGATIVE (NEGATIVE); OPIATES, UR NEGATIVE (NEGATIVE); PHENCYCLIDINE, UR NEGATIVE (NEGATIVE)
[2018-04-19] MEDS: Sodium Chloride 0.9% 1,000 ML IV SCH (22:00)
[2018-04-19] MEDS ORDERED: Gentamicin 80 mg/2mL Inj. IVPB ONE (22:16)
[2018-04-20] MEDS: Sodium Chloride 0.9% 1,000 ML IV SCH ×2 (06:00→13:28)
[2018-04-20 08:22] LABS: BASO # 0.1 K/uL (0.0-0.2); BASO % 0.4 % (0.0-2.0); EOS # 0.3 K/uL (0.0-0.7); EOS % 1.5 % (0.0-4.0); LYMPH # 2.8 K/uL (1.0-4.3); LYMPH % 15.4 % (20.0-40.0); MEAN CELL VOLUME 88.1 fL (81.0-99.0); MEAN CORPUSCULAR HEMOGLOBIN 28.9 pg (27.0-31.0); MEAN CORPUSCULAR HGB CONC 32.8 g/dL (33.0-37.0); MEAN PLATELET VOLUME 10.3 fL (7.2-11.7); MONO # 0.7 K/uL (0.0-0.8); MONO % 3.9 % (0.0-10.0); NEUT # 14.3 K/uL (1.8-7.0); NEUT % 78.8 % (50.0-75.0); RBC 3.81 Mil/uL (3.80-5.20); RED CELL DISTRIBUTION WIDTH 13.9 % (11.5-14.5); WHITE BLOOD COUNT 18.1 K/uL (4.8-10.8)
[2018-04-20] MEDS: Multiple Vitamins Tab PO SCH (10:27)
[2018-04-20 12:05] VITALS: O2SAT 98
[2018-04-20 13:27] LABS: SQUAMOUS EPITHIAL 4 /hpf (0-5); URINE BACTERIA RARE (<OCC); URINE BILIRUBIN NEGATIVE (NEGATIVE); URINE BLOOD NEGATIVE (NEGATIVE); URINE CLARITY Clear (Clear); URINE COLOR Yellow (YELLOW); URINE GLUCOSE (UA) NORMAL (Normal); URINE LEUKOCYTE ESTERASE TRACE Leu/uL (Negative); URINE PROTEIN NEGATIVE (NEGATIVE); URINE UROBILINOGEN NORMAL mg/dL (0.2-1.0)
[2018-04-20] MEDS: Gentamicin 80 mg in 0.9% NS 80 MG/100 ML BAG IVPB SCH (23:00)
[2018-04-21 00:05] VITALS: RESP 20
[2018-04-21] MEDS: Gentamicin 80 mg in 0.9% NS 80 MG/100 ML BAG IVPB SCH (06:59)
[2018-04-21 07:23] LABS: BASO % 0.2 % (0.0-2.0); EOS # 0.4 K/uL (0.0-0.7); EOS % 3.4 % (0.0-4.0); HEMOGLOBIN 9.3 g/dL (11.0-16.0); LYMPH # 3.2 K/uL (1.0-4.3); LYMPH % 26.6 % (20.0-40.0); MEAN CELL VOLUME 88.7 fL (81.0-99.0); MEAN CORPUSCULAR HGB CONC 32.7 g/dL (33.0-37.0); MEAN PLATELET VOLUME 10.1 fL (7.2-11.7); MONO # 0.6 K/uL (0.0-0.8); MONO % 5.1 % (0.0-10.0); NEUT # 7.7 K/uL (1.8-7.0); NEUT % 64.7 % (50.0-75.0); RBC 3.2 Mil/uL (3.80-5.20); RED CELL DISTRIBUTION WIDTH 13.7 % (11.5-14.5)
[2018-04-21] MEDS: Multiple Vitamins Tab PO SCH (09:04)
[2018-04-21 19:12] VITALS: BP 103/61; PULSE 67; TEMP 97.8
== END 2018-04-21 11:00 | disposition home or self-care (01) | DRG 560 ==
LOC: C.EROB 04:39 → UNDOADMIN 05:00 → C.4D 05:00 → C.4M 16:00
PROVIDERS: ADMIT Obstetrics & Gynecology; ATTEND Obstetrics & Gynecology
PROC: 0HQ9XZZ Repair Perineum Skin, External Approach (ICD-10-PCS; principal; 2018-04-19)
PROC: 10E0XZZ Delivery of Products of Conception, External Approach (ICD-10-PCS; 2018-04-19)
DX: O12.04 Gestational edema, complicating childbirth (principal); O48.0 Post-term pregnancy; O70.0 First degree perineal laceration during delivery; Z3A.40 40 weeks gestation of pregnancy; O69.81X0 Labor and delivery complicated by cord around neck, without compression, not applicable or unspecified; Z37.0 Single live birth